=== PATIENT | male | born 1940 | race Caucasian/White ===

== ENCOUNTER 2022-12-09 05:02 | Emergency (ER) | payer SELFPAY ==
[~2022-12-09] VITALS: Ht 182.9 cm; Wt 95.2 kg
[2022-12-09] MEDS ORDERED: FLOMAX0.4 MG PO (06:13)
[2022-12-09 06:45] VITALS: BP 126/68
--- OUTSIDE RECORDS SUMMARY | 2022-12-09 07:17 | XMS ---
PreManage Notification: KENTRELL HOLLIDAY Security [employer] Events No recent Security Events currently on file CRITERIA MET - [facility] - 2 Visits in 30 Days CARE PROVIDERS There are no care providers on record at this time. Jarrett has no Care Guidelines for this patient. Sayra VISIT COUNT (12 MO.) [address] [place] [address] [facility] TOTAL 2 NOTE: Visits indicate total known visits. ED/UCC VISIT TRACKING (12 MO.) 12/09/2022 05:03 [facility] [place] TYPE: Emergency COMPLAINT: - CANT URINATE [facility]22 05:[facility] DIAGNOSES: - Retention of urine, unspecified - Urinary Retention INPATIENT VISIT TRACKING (12 MO.) No inpatient visits to display in this time frame [email or web address]
== END 2022-12-09 06:59 | disposition home or self-care (01) ==
LOC: ED 05:02
DX: N40.1 Benign prostatic hyperplasia with lower urinary tract symptoms (principal); N13.8 Other obstructive and reflux uropathy